=== PATIENT | female | born 1960 | race Caucasian/White ===

== ENCOUNTER → 2017-11-23 13:44 | Outpatient (CLI) | payer OTHER, SELFPAY ==
--- NOTE | 2017-11-23 | DI.US.S_ITS ---
PROCEDURE: US PELVIC COMPLETE INDICATIONS: CERVICAL POLYP ON PHYSICAL EXAM TECHNIQUE: Real-time scanning was performed of the pelvic organs, with image documentation. Additional endovaginal scanning was necessary due to incomplete visualization of the adnexal and endometrial structures by transabdominal scanning. COMPARISON: None. FINDINGS: Transabdominal scanning: Limited scanning through the kidneys shows no hydronephrosis. No pathologic free abdominal or pelvic fluid. Endovaginal scanning: Uterus: Uterus is normal in size at 6.5 x 1.9 x 4.1 cm. The endometrium measures 1.8 mm in combined thickness. Avascular, echogenic focus above the superior endometrial complex measuring roughly 3 x 4 mm. Endometrial fluid also noted. Solid-appearing, heterogeneous focus within the endocervical canal measuring 2.0 x 0.5 and 1.2 cm. Ovaries: Ovaries normal bilaterally. No adnexal masses. IMPRESSION: 1. Endometrial fluid present with 3 x 4 mm echogenic avascular mass which may represent a small endometrial polyp, although other neoplastic processes cannot be excluded including early endometrial carcinoma. 2. Endocervical mass like structure which also could be related to underlying neoplasm or polyp. Correlate clinically. Gynecologic consultation recommended. 3. Normal appearance of the ovaries. Dictated by: Juan GARCES Interpreted: Mark Zuniga MD on 11/23/2017 at 14:43 Approved by: Antonio Zuniga M.D. on 11/23/2017 at 16:37
--- NOTE | 2017-11-23 | DI.MG.S_ITS ---
BILATERAL DIGITAL SCREENING MAMMOGRAM 3D/2D WITH CAD: 11/23/2017 Comparison is made to exams dated: 06/24/2014 mammogram and 08/07/2008 mammogram - [facility]. The tissue of both breasts is heterogeneously dense. This may lower the sensitivity of mammography. Current study was also evaluated with a Computer Aided Detection (CAD) system. No significant masses, calcifications, or other findings are seen in either breast. There has been no significant interval change. IMPRESSION: NEGATIVE There is no mammographic evidence of malignancy. A 1 year screening mammogram is recommended. This exam was interpreted at Station ID: [id number]. NOTE: For mammograms, a report in lay terms will be sent to the patient. Approximately 15% of breast malignancies will not be visualized mammographically. In the management of a palpable breast mass, a negative mammogram must not discourage biopsy of a clinically suspicious lesion. Electronically Signed By: Everardo damon/irlanda:11/23/2017 15:41:46 letter sent: Normal Exam ACR BI-RADS Category 1: Negative 3341F
== END ==
PROVIDERS: Visit Provider Nurse Practitioner Family
DX: R19.09 Other intra-abdominal and pelvic swelling, mass and lump (principal); Z12.31 Encounter for screening mammogram for malignant neoplasm of breast
CPT/HCPCS: 76830; 76856; 77063; 77067

== ENCOUNTER → 2018-12-07 10:24 | Outpatient (CLI) | payer OTHER, SELFPAY ==
--- NOTE | 2018-12-07 | DI.MG.S_ITS ---
BILATERAL DIGITAL SCREENING MAMMOGRAM 3D/2D WITH CAD: 12/07/2018 CLINICAL: Routine screening. Family history of breast cancer. Comparison is made to exams dated: 11/23/2017 mammogram - [facility], 06/24/2014 mammogram, and 08/07/2008 mammogram - [facility]. The tissue of both breasts is heterogeneously dense. This may lower the sensitivity of mammography. Current study was also evaluated with a Computer Aided Detection (CAD) system. There is an oval equal density asymmetry with an indistinct margin in the left breast middle depth central to the nipple seen on the craniocaudal view only. No other significant masses, calcifications, or other findings are seen in either breast. IMPRESSION: INCOMPLETE: NEEDS ADDITIONAL IMAGING EVALUATION The oval equal density asymmetry in the left breast is indeterminate. Mediolateral and spot compression views as well as additional views with possible ultrasound are recommended. This exam was interpreted at Station ID: [id number]. NOTE: For mammograms, a report in lay terms will be sent to the patient. Approximately 15% of breast malignancies will not be visualized mammographically. In the management of a palpable breast mass, a negative mammogram must not discourage biopsy of a clinically suspicious lesion. Electronically Signed By: Jason bautista/irlanda:12/09/2018 10:18:16 letter sent: Additional Imaging Needed ACR BI-RADS Category 0: Incomplete 3340F
== END ==
PROVIDERS: Visit Provider Nurse Practitioner Family
DX: Z12.31 Encounter for screening mammogram for malignant neoplasm of breast (principal); Z80.3 Family history of malignant neoplasm of breast
CPT/HCPCS: 77063; 77067

== ENCOUNTER → 2019-01-17 08:01 | Outpatient (CLI) | payer OTHER, SELFPAY ==
--- NOTE | 2019-01-17 | DI.MG.S_ITS ---
UNILATERAL LEFT DIGITAL DIAGNOSTIC MAMMOGRAM 3D/2D WITH ADDITIONAL VIEWS: 01/17/2019 CLINICAL: Additional evaluation requested from prior study. Comparison is made to exams dated: 12/07/2018 mammogram, 11/23/2017 mammogram - [facility], and 06/24/2014 mammogram - [facility]. The tissue of left breast is heterogeneously dense. This may lower the sensitivity of mammography. There is a benign oval equal density asymmetry with an indistinct margin in the left breast middle depth central to the nipple seen on the craniocaudal view only. This is not seen in additional spot compression tomosynthesis diagnositic views. No other significant masses or calcifications are seen in the breast. IMPRESSION: There is no mammographic evidence of malignancy. A 1 year screening mammogram is recommended. This exam was interpreted at Station ID: [id number]. NOTE: For mammograms, a report in lay terms will be sent to the patient. Approximately 15% of breast malignancies will not be visualized mammographically. In the management of a palpable breast mass, a negative mammogram must not discourage biopsy of a clinically suspicious lesion. Electronically Signed By: Felix Feliz M.D. slc/:01/17/2019 08:47:08 letter sent: Normal Exam ACR BI-RADS Category 2: Benign Finding(s) 3342F
== END ==
PROVIDERS: Visit Provider Nurse Practitioner Family
DX: R92.8 Other abnormal and inconclusive findings on diagnostic imaging of breast (principal)
CPT/HCPCS: 77065; G0279

== ENCOUNTER → 2021-06-09 09:20 | Outpatient (CLI) | payer OTHER, SELFPAY ==
--- NOTE | 2021-06-09 09:27 | DI.US.S_ITS ---
LIMITED ULTRASOUND OF RIGHT BREAST AND AXILLA: 06/09/2021 CLINICAL: Nipple discharge, right breast, not bloody. Comparison is made to exams dated: 06/09/2021 mammogram, 12/07/2018 mammogram, and 11/23/2017 mammogram - [facility]. Color flow and real-time ultrasound of the right breast 10 o'clock, retroareolar, and axilla regions were performed on the areas of interest. There is a 0.6 cm x 0.3 cm x 0.4 cm focally dilated duct in the right breast at 9 o'clock in the retroareolar region. This dilated duct displays internal echoes and appears mass-like. There is posterior acoustic enhancement. Color flow imaging demonstrates that there is no vascularity present. No suspicious enlarged lymph nodes were seen sonographically in the axilla. IMPRESSION: SUSPICIOUS OF MALIGNANCY The 0.6 cm x 0.3 cm x 0.4 cm dilated duct in the right breast resembles an intraductal mass and is suspicious of malignancy. An ultrasound guided biopsy is recommended. There is no abnormality seen in the right breast to correspond with the pain at 10 o'clock, however, clinical followup is recommended. The findings were discussed with the patient at the conclusion of the study by Dr. Conway. This exam was interpreted at Station ID: [id number]. Electronically Signed By: Jason Tong M.D. ddmikyala/:06/09/2021 10:57:54 letter sent: Biopsy Required Ultrasound BI-RADS: 4 Suspicious for malignancy
--- NOTE | 2021-06-09 09:27 | DI.MG.S_ITS ---
BILATERAL DIGITAL DIAGNOSTIC MAMMOGRAM 3D/2D: 06/09/2021 CLINICAL: Right breast pain and nipple discharge. Comparison is made to exams dated: 12/07/2018 mammogram, 11/23/2017 mammogram - [facility], and 06/24/2014 mammogram - [facility]. The tissue of both breasts is heterogeneously dense. This may lower the sensitivity of mammography. No significant masses, calcifications, or other findings are seen in either breast. IMPRESSION: INCOMPLETE: NEEDS ADDITIONAL IMAGING EVALUATION There is no abnormality seen in the right breast to correspond with the pain in the upper outer quadrant, however, ultrasound is recommended. There is no abnormality seen in the right breast to correspond with the discharge from the nipple in the sub-areolar depth, however, ultrasound is recommended. Ultrasound will be performed immediately following the current exam. This exam was interpreted at Station ID: [id number]. NOTE: For mammograms, a report in lay terms will be sent to the patient. Approximately 15% of breast malignancies will not be visualized mammographically. In the management of a palpable breast mass, a negative mammogram must not discourage biopsy of a clinically suspicious lesion. Electronically Signed By: Jason Tong M.D. ddp/:06/09/2021 10:54:33 ACR BI-RADS Category 0: Incomplete 3340F
== END ==
PROVIDERS: PCP Nurse Practitioner Family; Referring Provider Nurse Practitioner Family; Visit Provider Nurse Practitioner Family
DX: R92.2 Inconclusive mammogram (principal); N60.41 Mammary duct ectasia of right breast; N64.4 Mastodynia; N64.52 Nipple discharge
CPT/HCPCS: 76642; 77066; G0279

== ENCOUNTER → 2021-07-12 10:06 | Outpatient (CLI) | payer OTHER, SELFPAY ==
--- NOTE | 2021-07-12 | DI.MG.S_ITS ---
UNILATERAL RIGHT DIGITAL DIAGNOSTIC MAMMOGRAM 3D/2D: 07/12/2021 CLINICAL: Post clip placement. Comparison is made to exams dated: 06/09/2021 mammogram and 12/07/2018 mammogram - [facility]. The tissue of right breast is heterogeneously dense. This may lower the sensitivity of mammography. There is biospy clip in the 9:00 retroareolar area of the right breast. The clip is 1.4 cm posterior to the biopsy cavity. IMPRESSION: A biospy clip in the 9:00 retroareolar area of the right breast. The clip is 1.4 cm posterior to the biopsy cavity. This exam was interpreted at Station ID: [id number]. NOTE: For mammograms, a report in lay terms will be sent to the patient. Approximately 15% of breast malignancies will not be visualized mammographically. In the management of a palpable breast mass, a negative mammogram must not discourage biopsy of a clinically suspicious lesion. Electronically Signed By: Radha Moreira M.D. fx/:07/12/2021 14:37:44 ACR BI-RADS Category n/a
--- NOTE | 2021-07-12 | PATH_ITS ---
[facility] Accession Number: [id number] . 01 Material submitted: . breast - RIGHT BREAST MASS 9:00 RETROAREOLAR . 02 Diagnosis: A. Right Breast Mass, 9 o'clock Retroareolar, Biopsy: Fragments of intraductal papilloma with extensive apocrine metaplasia and usual ductal hyperplasia. Focal microcalcifications in association with background breast parenchyma. Negative for atypia, carcinoma in situ and malignancy. MRV 07/15/2021 1247 Local . 02 Electronically signed: . Cindy Stiles MD, Pathologist NPI- [id number] . 01 Gross description: . Received one formalin-filled container, labeled with the patient's name and designated right breast mass 9 o'clock retroareolar. The specimen is received with a plastic filter in container, sample loose in container and consists of multiple fragments of yellow-kc soft tissue which range in size from 0.2 x 0.2 x 0.2 cm to 1.0 x 0.3 x 0.2 cm. All fragments are totally submitted in one cassette. Possible collection date and time per requisition: 07/12/2021 at 11:23. Total fixation time: Approximately 16 hours. ([id number]) /FRR 07/13/2021 0346 Local . 02 Pathologist provided ICD-10: D24.1 . 02 CPT . 593841 Performed at: 01 [facility] [address] [facility], [place], [place] [id number] MD Jason Kapadia MD Phone: [phone] Performed at: 02 [facility] [address] [place], [place] [id number] MD Alexandria Patel MD Phone: [phone]
--- NOTE | 2021-07-12 | DI.US.S_ITS ---
ULTRASOUND GUIDED BIOPSY RIGHT BREAST USING VACUUM DEVICE WITH POST MAMMOGRAPHIC AND ULTRASOUND IMAGIN07/12/2021 CLINICAL: Right breast mass. PATIENT CONSENT: Risks (minor bleeding, infection, vasovagal reaction and repeat procedure), benefits and alternatives were explained to the patient and written informed consent was obtained. Correlation is made to exams dated: 07/12/2021 mammogram, 06/09/2021 ultrasound, and 06/09/2021 mammogram - [facility]. An ultrasound guided biopsy using real-time ultrasound was performed for the 0.6 cm x 0.3 cm x 0.4 cm oval mass located in the right breast at 9 o'clock in the retroareolar region. This was described on the previous ultrasound report. The skin was prepped in the usual manner. Local anesthetic was administered to the access site. The abnormality was approached from the lateral aspect. A 13 gauge biopsy needle was placed adjacent to the abnormality under ultrasound guidance. Once the needle was documented to be in the correct location, five specimens were obtained using the Mammotome biopsy system. Post procedure mammographic and ultrasound imaging demonstrates the clip at the targeted area. The specimens were sent to the laboratory for pathological analysis. IMPRESSION: ULTRASOUND GUIDED BIOPSY HIGH RISK BENIGN Ultrasound guided biopsy of the 0.6 cm x 0.3 cm x 0.4 cm mass in the right breast in the retroareolar region was successful. Pathology indicates intraductal papilloma with extensive apocrine metaplasia and usual ductal hyperplasia. (The lesion is not palpable but the patient is having nipple discharge. No atypia reported. The lesion is very small). Pathology results are concordant with imaging findings. Recommend follow-up ultrasound in 6 months. A surgical consultation can be considered. This exam was interpreted at Station ID: [id number]. Radha Feliz M.D. fx,slc/:07/20/2021 11:39:06
== END ==
PROVIDERS: PCP Nurse Practitioner Family; Referring Provider Nurse Practitioner Family; Visit Provider Nurse Practitioner Family
DX: D24.1 Benign neoplasm of right breast (principal); N60.81 Other benign mammary dysplasias of right breast
CPT/HCPCS: 19083; 77065

== ENCOUNTER → 2022-01-17 07:14 | Outpatient (CLI) | payer SELFPAY | PROVIDERS: PCP Nurse Practitioner Family; Visit Provider Nurse Practitioner Critical Care Medicine | DX: N39.0 Urinary tract infection, site not specified (principal) | CPT/HCPCS: 87077; 87086; 87186 ==

== ENCOUNTER → 2022-03-14 09:09 | Outpatient (CLI) | payer SELFPAY ==
--- NOTE | 2022-03-14 | DI.US.S_ITS ---
LIMITED ULTRASOUND OF RIGHT BREAST AND AXILLA: 03/14/2022 CLINICAL: Patient returns for a 6 month follow up of the right breast. Comparison is made to exams dated: 07/12/2021 ultrasound biopsy, 07/12/2021 mammogram, 06/09/2021 ultrasound, 06/09/2021 mammogram, 12/07/2018 mammogram, and 11/23/2017 mammogram - [facility]. Color flow and real-time ultrasound of the right breast 9 o'clock, retroareolar, and axilla regions were performed. Graham scale images of the real-time examination were reviewed. There is a stable 0.6 cm x 0.2 cm x 0.3 cm oval mass in the right breast at 9 o'clock in the retroareolar region. This correlates with previous nipple discharge and the previous biopsy. Color flow imaging demonstrates that there is no vascularity present. No significant abnormalities were seen sonographically in the right axilla. IMPRESSION: BENIGN The stable 0.6 cm x 0.2 cm x 0.3 cm oval mass in the right breast is a high risk benign lesion by previous biopsy (intraductal papilloma, no atypia, extensive apocrine metaplasia, usual ductal hyperplasia), concordant with imaging findings. This has been stable since May 2021. Consider surgical consultation if appropriate, as previously mentioned, for high risk benign pathology. Otherwise, return to annual mammogram screening schedule is recommended. There is no sonographic evidence of malignancy. This exam was interpreted at Station ID: [id number]. Electronically Signed By: Nestor Zamora M.D. lc/:03/14/2022 10:25:49 letter sent: Clinical Evaluation Ultrasound BI-RADS: 2 Benign
== END ==
PROVIDERS: PCP Nurse Practitioner Family; Referring Provider Nurse Practitioner Family; Visit Provider Nurse Practitioner Family
DX: R92.8 Other abnormal and inconclusive findings on diagnostic imaging of breast (principal); N63.15 Unspecified lump in the right breast, overlapping quadrants
CPT/HCPCS: 76642

== ENCOUNTER → 2022-06-08 09:38 | Outpatient (CLI) | payer SELFPAY ==
--- NOTE | 2022-06-08 | DI.MG.S_ITS ---
BILATERAL DIGITAL SCREENING MAMMOGRAM 3D/2D WITH CAD: 06/08/2022 CLINICAL: Routine screening. Comparison is made to exams dated: 03/14/2022 ultrasound, 07/12/2021 mammogram, 06/09/2021 mammogram, and 01/17/2019 mammogram - [facility]. Both breasts are heterogeneously dense, which may obscure small masses (category c / 51-75% glandular tissue). Current study was also evaluated with a Computer Aided Detection (CAD) system. There is a possible asymmetry in the left breast central to the nipple posterior depth. There is architectural distortion associated with the asymmetry. No other significant masses, calcifications, or other findings are seen in either breast. IMPRESSION: INCOMPLETE: NEEDS ADDITIONAL IMAGING EVALUATION The possible asymmetry in the left breast is indeterminate. Additional views with possible ultrasound are recommended. This exam was interpreted at Station ID: [id number]. NOTE: For mammograms, a report in lay terms will be sent to the patient. Approximately 15% of breast malignancies will not be visualized mammographically. In the management of a palpable breast mass, a negative mammogram must not discourage biopsy of a clinically suspicious lesion. Electronically Signed By: Berry Sánchez M.D., jr/irlanda:06/08/2022 12:56:31 letter sent: Additional Imaging Needed ACR BI-RADS Category 0: Incomplete 3340F
== END ==
PROVIDERS: PCP Nurse Practitioner Family; Referring Provider Nurse Practitioner Family; Visit Provider Nurse Practitioner Family
DX: Z12.31 Encounter for screening mammogram for malignant neoplasm of breast (principal)
CPT/HCPCS: 77063; 77067

== ENCOUNTER → 2022-08-23 08:44 | Outpatient (CLI) | payer SELFPAY ==
--- NOTE | 2022-08-23 | DI.MG.S_ITS ---
UNILATERAL LEFT DIGITAL DIAGNOSTIC MAMMOGRAM 3D/2D WITH ADDITIONAL VIEWS: 08/23/2022 CLINICAL: Additional evaluation requested from prior study. Comparison is made to exams dated: 06/08/2022 mammogram, 06/09/2021 mammogram, and 12/07/2018 mammogram - [facility]. The left breast is heterogeneously dense, which may obscure small masses (category c / 51-75% glandular tissue). There was a possible benign asymmetry in the left breast central to the nipple posterior depth. This is not seen in additional views. No other significant masses or calcifications are seen in the breast. IMPRESSION: BENIGN There is no mammographic evidence of malignancy. Return to annual mammogram screening schedule is recommended. Based on the Tyrer Cuzick model (a risk assessment model) the patient's lifetime risk is 17.8% and her 10 year risk is 7.7%. According to the ACR, ACS, and NCCN guidelines, an annual breast MRI exam along with mammogram is recommended if the patient's lifetime risk is 20% or greater. This exam was interpreted at Station ID: [id number]. NOTE: For mammograms, a report in lay terms will be sent to the patient. Approximately 15% of breast malignancies will not be visualized mammographically. In the management of a palpable breast mass, a negative mammogram must not discourage biopsy of a clinically suspicious lesion. Electronically Signed By: Maynor Ibarra M.D. acr/:08/23/2022 09:10:15 letter sent: Normal Exam ACR BI-RADS Category 2: Benign Finding(s) 3342F
== END ==
PROVIDERS: PCP Nurse Practitioner Family; Referring Provider Nurse Practitioner Family; Visit Provider Nurse Practitioner Family
DX: R92.8 Other abnormal and inconclusive findings on diagnostic imaging of breast (principal)
CPT/HCPCS: 77065; G0279